=== PATIENT | female | born 1955 | race African-American/Black ===

== ENCOUNTER → 2023-04-29 | Outpatient (CLI) | payer MEDICARE, MEDICAID ==
[~2023-04-29] MED LIST: ALBU6.7H6 INH; INVE156I IM; LABE20TAB PO; LOSA100T46 PO; PANT40TA29 PO; TIOT18INH INH
== END ==
LOC: M RAD 10:09
PROVIDERS: ATTEND Family Medicine
DX: Z12.2 Encounter for screening for malignant neoplasm of respiratory organs (principal); F17.210 Nicotine dependence, cigarettes, uncomplicated

== ENCOUNTER 2023-04-30 10:38 | Emergency (ER) | payer MEDICARE, MEDICAID ==
[~2023-04-30] VITALS: Ht 165.1 cm; Wt 105.8 kg
[2023-04-30] MEDS ORDERED: LOSA100T46 PO (11:01)
[2023-04-30] MEDS ORDERED: ALBU6.7H6 INH (11:02)
[2023-04-30] MEDS ORDERED: LABE20TAB PO (11:03)
[2023-04-30] MEDS ORDERED: TIOT18INH INH (11:05)
[2023-04-30] MEDS ORDERED: PANT40TA29 PO (11:05)
[2023-04-30] MEDS ORDERED: INVE156I IM (11:06)
[2023-04-30 12:10] LABS: HEMATOCRIT 44.2 % (36.0-47.0); HEMOGLOBIN 15.6 g/dl (12.0-15.5); MEAN CORPUSCULAR HEMOGLOBIN 31.5 pg (27.0-33.0); MEAN CORPUSCULAR HGB CONC 35.3 g/dl (32.0-36.5); MEAN CORPUSCULAR VOLUME 89.3 fl (80.0-96.0); PLATELET COUNT, AUTOMATED 313 10^3/uL (150-450); RED BLOOD COUNT 4.95 10^6/uL (4.00-5.40)
[2023-04-30 12:32] LABS: AMPHETAMINES LEVEL URINE NEGATIVE (NEGATIVE); BARBITURATES URINE NEGATIVE (NEGATIVE); BENZODIAZEPINES URINE NEGATIVE (NEGATIVE); COCAINE METABOLITE URINE NEGATIVE (NEGATIVE); METHADONE URINE NEGATIVE (NEGATIVE)
[2023-04-30 12:33] LABS: CANNABINOIDS URINE NEGATIVE (NEGATIVE); OPIATES URINE NEGATIVE (NEGATIVE); PHENCYCLIDINE URINE NEGATIVE (NEGATIVE)
[2023-04-30 12:34] LABS: ETHYL ALCOHOL (ETHANOL) < 0.003 % (0.000-0.010)
[2023-04-30 12:36] LABS: ALBUMIN 3.7 G/DL (3.2-5.2); ALKALINE PHOSPHATASE 101 U/L (46-116); ALT/SGPT 23 U/L (7.0-40); AST/SGOT 21 U/L (<34); BILIRUBIN,DIRECT 0.3 MG/DL (<0.4); BILIRUBIN,TOTAL 0.8 MG/DL (0.3-1.2); BLOOD UREA NITROGEN 29 MG/DL (9-23); CALCIUM LEVEL 9.4 MG/DL (8.3-10.6); CARBON DIOXIDE LEVEL 26 MMOL/L (20-31); CHLORIDE LEVEL 111 MMOL/L (98-107); CK-MB VALUE MASS 1.1 NG/ML (<3.6); CREATININE FOR GFR 1.09 MG/DL (0.55-1.30); GLOMERULAR FILTRATION RATE > 60.0 (>45); GLUCOSE, FASTING 113 MG/DL (74-106); POTASSIUM SERUM 3.9 MMOL/L (3.5-5.1); SALICYLATE LEVEL < 3.0 MG/DL (<30); SODIUM LEVEL 143 MMOL/L (136-145); TOTAL PROTEIN 7.6 G/DL (5.7-8.2)
[2023-04-30 12:38] LABS: CPK CREATINE PHOSPHOKINASE 134 U/L (34-145); MB/CK RELATIVE INDEX 0.82 (< OR =4); THYROID STIMULATING HORMONE 2.136 uIU/ML (0.55-4.78)
[2023-04-30] MEDS ORDERED: LABETALOL 100MG TAB PO ONE (12:45)
[2023-04-30 13:43] LABS: MB/CK RELATIVE INDEX 0.67 (< OR =4)
[2023-04-30] MEDS ORDERED: MED REC IN PROGRESS XX SCH (15:35)
[2023-04-30] MEDS ORDERED: HOME MED LIST COMPLETE! XX SCH (15:55)
[2023-04-30] MEDS: LABETALOL 200 MG TAB PO SCH (20:34)
[2023-05-01] MEDS: LABETALOL 200 MG TAB PO SCH (07:53)
[2023-05-01] MEDS ORDERED: TIOTROPIUM INHALER/CAPSULE (SPIRIVA) INH SCH (08:00)
[2023-05-01] MEDS ORDERED: PANTOPRAZOLE 40MG TAB (PROTONIX) PO SCH (09:00)
[2023-05-01] MEDS ORDERED: LOSARTAN 50MG TABLET PO SCH (09:00)
[2023-05-01] MEDS ORDERED: NICOTINE 21MG/24HR 1 EA TRANSDERMAL TD ONE (10:45)
[2023-05-01 14:45] VITALS: BP 175/85; TEMP 96; O2SAT 94
== END 2023-05-01 14:50 ==
LOC: M ED 10:38
DX: F20.9 Schizophrenia, unspecified (principal); I10 Essential (primary) hypertension; J44.9 Chronic obstructive pulmonary disease, unspecified; I45.81 Long QT syndrome; Z79.52 Long term (current) use of systemic steroids; Z79.811 Long term (current) use of aromatase inhibitors; Z79.899 Other long term (current) drug therapy

== ENCOUNTER 2023-06-01 16:00 | Emergency (ER) | payer MEDICARE, MEDICAID ==
[2023-06-01] MEDS ORDERED: TRAZ1TAB10 PO (16:15)
[2023-06-01 18:32] LABS: HEMATOCRIT 45.9 % (36.0-47.0); HEMOGLOBIN 16.1 g/dl (12.0-15.5); MEAN CORPUSCULAR HEMOGLOBIN 31.1 pg (27.0-33.0); MEAN CORPUSCULAR HGB CONC 35.1 g/dl (32.0-36.5); MEAN CORPUSCULAR VOLUME 88.8 fl (80.0-96.0); PLATELET COUNT, AUTOMATED 309 10^3/uL (150-450); RED BLOOD COUNT 5.17 10^6/uL (4.00-5.40); WHITE BLOOD COUNT 8.8 10^3/uL (4.0-10.0)
[2023-06-01 19:02] LABS: CK-MB VALUE MASS < 1.0 NG/ML (<3.6)
[2023-06-01 19:03] LABS: ETHYL ALCOHOL (ETHANOL) 0.003 % (0.000-0.010)
[2023-06-01 19:05] LABS: CPK CREATINE PHOSPHOKINASE 100 U/L (34-145); SALICYLATE LEVEL < 3.0 MG/DL (<30)
[2023-06-01 19:06] LABS: ALBUMIN 3.5 G/DL (3.2-5.2); ALKALINE PHOSPHATASE 106 U/L (46-116); ALT/SGPT 21 U/L (7.0-40); AST/SGOT 19 U/L (<34); BILIRUBIN,DIRECT 0.2 MG/DL (<0.4); BILIRUBIN,TOTAL 0.7 MG/DL (0.3-1.2); BLOOD UREA NITROGEN 20 MG/DL (9-23); CALCIUM LEVEL 9.6 MG/DL (8.3-10.6); CARBON DIOXIDE LEVEL 28 MMOL/L (20-31); CHLORIDE LEVEL 108 MMOL/L (98-107); CREATININE FOR GFR 0.87 MG/DL (0.55-1.30); GLOMERULAR FILTRATION RATE > 60.0 (>45); GLUCOSE, FASTING 97 MG/DL (74-106); MAGNESIUM LEVEL 1.6 MG/DL (1.8-2.4); SODIUM LEVEL 140 MMOL/L (136-145); TOTAL PROTEIN 7.6 G/DL (5.7-8.2)
[2023-06-01 19:07] LABS: RSV AMPLIFICATION NEGATIVE (NEGATIVE)
[2023-06-01 19:08] LABS: THYROID STIMULATING HORMONE 1.239 uIU/ML (0.55-4.78)
[2023-06-01 21:00] VITALS: BP 119/59; TEMP 98.2; O2SAT 94
[2023-06-01] MEDS: traZODone 50 MG TAB PO ONE (23:09)
== END 2023-06-01 23:23 | disposition home or self-care (01) ==
LOC: M ED 16:00
DX: F20.0 Paranoid schizophrenia (principal); F03.90 Unspecified dementia, unspecified severity, without behavioral disturbance, psychotic disturbance, mood disturbance, and anxiety; I45.81 Long QT syndrome; I10 Essential (primary) hypertension; J44.9 Chronic obstructive pulmonary disease, unspecified; K21.9 Gastro-esophageal reflux disease without esophagitis; F17.200 Nicotine dependence, unspecified, uncomplicated; Z79.811 Long term (current) use of aromatase inhibitors; Z79.899 Other long term (current) drug therapy

== ENCOUNTER → 2023-09-09 | Outpatient (CLI) | payer MEDICARE, MEDICAID ==
[~2023-09-09] MED LIST changes: +TRAZ1TAB10 PO
== END ==
LOC: M PLAIMG 12:58
PROVIDERS: ATTEND Internal Medicine Pulmonary Disease
DX: J44.9 Chronic obstructive pulmonary disease, unspecified (principal); E27.8 Other specified disorders of adrenal gland

== ENCOUNTER → 2023-10-04 | Outpatient (CLI) | payer MEDICARE, MEDICAID | LOC: M PLARAD 13:05 | PROVIDERS: ATTEND Internal Medicine Pulmonary Disease | DX: R91.8 Other nonspecific abnormal finding of lung field (principal) | CPT/HCPCS: 78815; A9552 ==

== ENCOUNTER 2024-05-09 06:49 | Day surgery (SDC) | payer MEDICARE, MEDICAID ==
[~2024-05-09] VITALS: Ht 167.6 cm; Wt 105.6 kg
[~2024-05-09 06:49] MED LIST changes: +AMLO2.5T3 PO; +BUME1TAB3 PO; +CVS-161 PO; +FLUT1BLS8; +INVE234I IM; +MIRT1TAB PO; +PALI1TAB2 PO; +PHENYLEPHRINE 10% OPHTH SOL 5ML OD PRN; +THERTAB52 PO; +VERI5TAB PO
[2024-05-09] MEDS ORDERED: MIDAZOLAM INJ 2MG/2ML VIAL As Ordered ONE (07:02)
[2024-05-09] MEDS ORDERED: fentaNYL 100 MCG/2 ML INJECTION As Ordered ONE (07:02)
[2024-05-09] MEDS: LIDOCAINE 3.5 % 1ML OPHTH TOPICAL GEL OU ONE (07:38)
[2024-05-09] MEDS: CYCLOPENTOLATE 1% OPHTH SOLN 2ML BTL OD SCH (07:38)
[2024-05-09] MEDS: OFLOXACIN 0.3 % (OCUFLOX) OPTH SOL 5ML OD ONE (07:38)
[2024-05-09] MEDS: PHENYLEPHRINE 2.5% OPHTH SOL 2ML OD SCH (07:38)
[2024-05-09] MEDS: TROPICAMIDE 1% OPHTH SOLN 15ML OD SCH (07:39)
[2024-05-09] MEDS ORDERED: ALBUTEROL SULFATE 2.5MG/0.5ML INH NEB SOLN As Ordered ONE (08:27)
[2024-05-09] MEDS: ALBUTEROL SULFATE 2.5MG/0.5ML INH NEB SOLN NEB ONE (08:33)
[2024-05-09] MEDS: CEFUROXIME 1MG/0.1ML INTRACAMERAL INJ As Ordered ONE (10:04)
[2024-05-09] MEDS: BSS IRRIG/VANCO(10MG)/TOBRA(5MG)/EPINEPH(1:1000-0.5CC)500ML BAG-ORONLY As Ordered ONE (10:04)
[2024-05-09] MEDS: LIDOCAINE 1% SDV 5ML VIAL As Ordered ONE (10:04)
[2024-05-09 10:16] VITALS: BP 144/76; TEMP 97.3; O2SAT 96
== END 2024-05-09 10:48 | disposition home or self-care (01) ==
LOC: M SDC 06:49
PROVIDERS: ATTEND Ophthalmology
DX: H25.11 Age-related nuclear cataract, right eye (principal); I11.0 Hypertensive heart disease with heart failure; I50.9 Heart failure, unspecified; J44.9 Chronic obstructive pulmonary disease, unspecified; F17.210 Nicotine dependence, cigarettes, uncomplicated; Z79.899 Other long term (current) drug therapy; Z79.51 Long term (current) use of inhaled steroids; F20.9 Schizophrenia, unspecified; K21.9 Gastro-esophageal reflux disease without esophagitis
CPT/HCPCS: 66984; J0697; J2250; J3010; V2632

== ENCOUNTER 2024-05-16 06:27 | Day surgery (SDC) | payer MEDICARE, MEDICAID ==
[~2024-05-16] VITALS: Ht 167.6 cm; Wt 106.4 kg
[2024-05-16] MEDS: LIDOCAINE 3.5 % 1ML OPHTH TOPICAL GEL OU ONE (06:00)
[~2024-05-16 06:27] MED LIST changes: +OFLOXACIN 0.3 % (OCUFLOX) OPTH SOL 5ML OS ONE; -PHENYLEPHRINE 10% OPHTH SOL 5ML OD PRN; +PHENYLEPHRINE 10% OPHTH SOL 5ML OS PRN
[2024-05-16] MEDS: PHENYLEPHRINE 2.5% OPHTH SOL 2ML OS SCH (07:10)
[2024-05-16] MEDS: TROPICAMIDE 1% OPHTH SOLN 15ML OS SCH (07:10)
[2024-05-16] MEDS: CYCLOPENTOLATE 1% OPHTH SOLN 2ML BTL OS SCH (07:11)
[2024-05-16] MEDS ORDERED: MIDAZOLAM INJ 2MG/2ML VIAL As Ordered ONE (07:12)
[2024-05-16] MEDS: LIDOCAINE 1% SDV 5ML VIAL As Ordered ONE (08:30)
[2024-05-16] MEDS: CEFUROXIME 1MG/0.1ML INTRACAMERAL INJ As Ordered ONE (08:35)
[2024-05-16] MEDS: BSS IRRIG/VANCO(10MG)/TOBRA(5MG)/EPINEPH(1:1000-0.5CC)500ML BAG-ORONLY As Ordered ONE (08:35)
[2024-05-16 08:45] VITALS: BP 137/78; TEMP 97.5; O2SAT 97
== END 2024-05-16 08:55 | disposition home or self-care (01) ==
LOC: M SDC 06:27
PROVIDERS: ATTEND Ophthalmology
DX: H25.12 Age-related nuclear cataract, left eye (principal); I10 Essential (primary) hypertension; K21.9 Gastro-esophageal reflux disease without esophagitis; D64.9 Anemia, unspecified; F41.9 Anxiety disorder, unspecified; F20.9 Schizophrenia, unspecified; J44.9 Chronic obstructive pulmonary disease, unspecified; F17.210 Nicotine dependence, cigarettes, uncomplicated; Z79.899 Other long term (current) drug therapy
CPT/HCPCS: 66984; J0697; J2250; V2632